=== PATIENT | male | born 1950 | race Asian ===

== ENCOUNTER 2020-10-29 09:54 | Emergency (ER) | payer MEDICAID, SELFPAY ==
[2020-10-29] VITALS (59 sets, daily range): BP systolic 140–189; BP diastolic 68–104; PULSE 82–110; RESP 18–47; TEMP 36.6–36.8; O2SAT 91–99; BMI 23.4
--- NOTE | 2020-10-29 10:05 | DI.RAD.S_ITS ---
PROCEDURE: XR CHEST 1V INDICATIONS: chest pain TECHNIQUE: One view of the chest was acquired. COMPARISON: None. FINDINGS: Surgical changes and devices: None. Lungs and pleura: Bilateral interstitial prominence. No focal infiltrate or consolidation. No pleural effusions or pneumothorax. Mediastinum: Mediastinal contours appear normal. Heart size is normal. Bones and chest wall: No suspicious bony lesions. Overlying soft tissues appear unremarkable. IMPRESSION: Bilateral interstitial prominence. No acute cardiopulmonary disease. Dictated by: Sofy Batista M.D. on 10/29/2020 at 10:44 Approved by: Sofy Batista M.D. on 10/29/2020 at 10:53
[2020-10-29 10:14] LABS: Add Manual Diff / Slide Review NO; Basophils Absolute Auto 100 /uL (0-100); Basophils Percent Auto 0.4 % (0-2); Eosinophils Absolute Auto 0 /uL (0-450); Eosinophils Percent Auto 0.2 % (2-4); Hematocrit 37.9 % (41-53); Lymphocytes Absolute Auto 400 /uL (1100-4500); Lymphocytes Percent Auto 2.4 % (25-40); Mean Corpuscular HGB Conc 34.3 % (30-36); Mean Corpuscular Hemoglobin 32.7 PG (26-34); Mean Corpuscular Volume 95.2 fL (80-100); Monocytes Absolute Auto 1100 /uL (0-900); Monocytes Percent Auto 5.9 % (3-14); Neutrophils Absolute Auto 16500 /uL (1500-7000); Neutrophils Percent Auto 91.1 % (50-75); Platelet Count 142 X10^3/uL (150-400); Red Blood Cell Count 3.98 X10^6/uL (4.5-5.9); Red Cell Distribution Width 14.2 % (11.6-14.8); White Blood Cell Count 18.1 X10^3/uL (4.5-11.0)
[2020-10-29 10:22] LABS: INR 1.2 (0.9-1.3); Prothrombin Time 14.1 SECONDS (10.1-12.7)
[2020-10-29 10:25] LABS: PTT Partial Thromboplastin Tim 27 SECONDS (26.4-36.2)
[2020-10-29 10:27] LABS: Alanine Aminotransferase 30 IU/L (<50); Albumin 3.1 g/dL (3.5-5.0); Albumin Globulin Ratio 0.9 (1.0-2.8); Alkaline Phosphatase 475 U/L (38-126); Aspartate Aminotransferase 34 IU/L (17-59); Bilirubin Total 2.2 mg/dL (0.2-1.3); Calcium 8.2 mg/dL (8.4-10.2); Carbon Dioxide 16 mmol/L (22-32); Chloride 101 mmol/L (98-107); Creatine Kinase 30 U/L (55-170); Globulin 3.3 g/dL (1.7-4.1); Glucose 130 mg/dL (80-110); HEMOLYSIS < 15 (0-50); Lipase 22 U/L (23-300); Sodium 131 mmol/L (137-145); Total Protein 6.4 g/dL (6.3-8.2)
[2020-10-29 10:37] LABS: BUN Creatinine Ratio 12.5 (6-22); Estimated Glomerular Filt Rate 5.8 mL/min (>60)
[2020-10-29 10:39] LABS: Troponin I 0.018 ng/mL (0.01-0.034)
[2020-10-29 10:41] LABS: Blood Urea Nitrogen 114 mg/dL (9-20)
--- NOTE | 2020-10-29 10:51 | ED_ITS ---
HPI - Chest Pain General Chief Complaint: Chest Pain Stated Complaint: Mild chest pain Time Seen by Provider: 10/29/20 10:10 Source: patient and family Mode of arrival: Wheelchair Limitations: language barrier History of Present Illness HPI narrative: 70-year-old male who is Japanese speaking. He states he does understand [place] and can only speak a small amount. He does have family at bedside he was provided some translation. We offer the translation line however the patient declined. It appears that approximately 10 days ago he had what he describes as the flu. Was a sore throat and subjective fevers and generally not feeling very well. He tried some home TheraFlu any thought that the symptoms w ere improving until 3 days ago when he became more weak. Had no appetite. Did not have any fevers. He is complaining of some abdominal discomfort. Also complains about issues with urination. Has had no bowel changes. He does have a lump in his right groin that has been there for several years but just has enlarged recently. This is not tender. Is here because he is very weak. Related Data Home Medications Medication Instructions Recorded Confirmed No Known Home Medications 10/29/20 10/29/20 Allergies Allergy/AdvReac Type Severity Reaction Status Date / Time ceftriaxone Allergy Severe Anaphylaxis Verified 10/29/20 12:47 Review of Systems Constitutional Constitutional: Denies fever(s) (Not currently), Denies headache(s) and Reports lethargy ENT Ears, Nose, Mouth, and Throat: Denies headache(s) Cardiovascular Cardiovascular: Denies chest pain and Denies dyspnea Respiratory Respiratory: Denies dyspnea Gastrointestinal Gastrointestinal: Denies abdominal pain Genitourinary Comments: Some difficulty with urinating Musculoskeletal Musculoskeletal: Reports myalgias Integumentary/Breasts Skin/Breast: Denies rash Neurologic Neurologic: Denies behavioral changes and Denies headache(s) Psychiatric Psychiatric: Denies behavioral changes Hematologic/Lymphatic On Anticoagulants: No Allergic/Immunologic Allergic/Immunologic: Denies urticaria Patient History Medical History Patient denies medical problems Social History Smoking Status: Current every day smoker Smoking Status: Current every day smoker alcohol intake frequency: a few times a week Substance Use Type: does not use Exam Initial Vital Signs Initial Vital Signs: Vital Signs Pulse Rate 93 H 10/29/20 09:57 Respiratory Rate 26 H 10/29/20 09:57 Blood Pressure 153/93 H 10/29/20 09:57 Pulse Oximetry 95 10/29/20 09:57 Const General: cooperative and comfortable Limitations: mental status not altered HENMT Head: normal to inspection and normocephalic Resp Effort & Inspection: normal respiratory effort and tachypneic Auscultation: clear to auscultation bilaterally Cardio Rate: regular rate Rhythm: regular rhythm GI Inspection: non-distended Palpation: soft and No tender Other: Patient does have a reducible right-sided inguinal hernia Skin Lesions: no lesions Rashes: no rashes Neuro General: patient alert and patient awake Cognition: normal cognition Speech: speech normal Extrem General: normal to inspection and capillary refill normal Psych Appearance: grossly normal and well kempt Course Orders Ordered: ED Orders 10/29/20 10:05 XR chest 1V Stat EKG-12 Lead Stat 10/29/20 10:10 Complete Blood Count AUTO DIFF Stat Comprehensive Metabolic Panel Stat Lipase Stat Partial Thromboplastin Time Stat Prothrombin Time INR Stat Troponin & CK Cardiac Panel Stat 10/29/20 10:51 CT abdomen pelvis wo con Stat 10/29/20 11:05 COVID19 Stat Urinalysis and Microscopic Stat Urine Culture Stat Discontinued Medications Albuterol (Albuterol 2.5 Mg/3 Ml Neb (Adult)) 2.5 mg INH NOW ONE Stop: 10/29/20 12:42 Last Admin: 10/29/20 13:02 Dose: 2.5 mg Documented by: BILL Diphenhydramine HCl (Diphenhydramine 50 Mg/Ml Vial) 25 mg IV NOW ONE Stop: 10/29/20 12:42 Last Admin: 10/29/20 12:44 Dose: 25 mg Documented by: TANIA Epinephrine HCl (Epinephrine 1 Mg/Ml) 0.3 mg IM NOW ONE Stop: 10/29/20 12:42 Last Admin: 10/29/20 12:44 Dose: 0.3 mg Documented by: TANIA Sodium Chloride (Normal Saline 0.9%) 1,000 mls @ 1,000 mls/hr IV BOLUS ONE Stop: 10/29/20 11:40 Last Infusion: 10/29/20 12:12 Dose: 0 mls/hr Documented by: Admin: 10/29/20 11:07 Dose: 1,000 mls/hr Documented by: TANIA Ceftriaxone Sodium/Dextrose (Rocephin) 1 gm in 50 mls @ 100 mls/hr IV NOW ONE Stop: 10/29/20 12:02 Last Infusion: 10/29/20 12:42 Dose: 0 mls/hr Documented by: Admin: 10/29/20 12:12 Dose: 100 mls/hr Documented by: JESICA Famotidine (Pepcid) 20 mg in 50 mls @ 200 mls/hr IV NOW ONE Stop: 10/29/20 12:59 Last Infusion: 10/29/20 13:06 Dose: 0 mls/hr Documented by: Admin: 10/29/20 12:50 Dose: 200 mls/hr Documented by: JESICA Lidocaine HCl (Lidocaine 2% (Urojet) 5 Ml Gel) 5 ml TOP NOW ONE Stop: 10/29/20 15:42 Last Admin: 10/29/20 15:52 Dose: 5 ml Documented by: JESICA Methylprednisolone (Methylprednisolone 125 Mg/2 Ml Vial) 125 mg IV NOW ONE Stop: 10/29/20 12:42 Last Admin: 10/29/20 12:49 Dose: 125 mg Documented by: JESICA Vital Signs Vital signs: Vital Signs - 8 hr 10/29/20 09:57 10/29/20 10:02 10/29/20 10:04 Temperature Pulse Rate 93 H 97 H 92 H Respiratory Rate 26 H 28 H Blood Pressure 153/93 H 153/93 H Pulse Oximetry 95 94 10/29/20 10:30 10/29/20 11:00 10/29/20 11:24 Temperature Pulse Rate 84 103 H 96 H Respiratory Rate 28 H 25 H 22 Blood Pressure 145/90 H 148/83 H 151/83 H Pulse Oximetry 94 96 10/29/20 11:30 10/29/20 12:00 10/29/20 12:30 Temperature Pulse Rate 87 90 94 H Respiratory Rate 27 H 34 H 36 H Blood Pressure 148/83 H 140/89 160/97 H Pulse Oximetry 95 95 91 10/29/20 12:44 10/29/20 12:45 10/29/20 12:50 Temperature Pulse Rate 106 H 109 H 106 H Respiratory Rate Blood Pressure 172/100 H 184/91 H 182/88 H Pulse Oximetry 98 96 99 10/29/20 12:55 10/29/20 13:00 10/29/20 13:05 Temperature Pulse Rate 101 H 101 H 103 H Respiratory Rate 18 24 Blood Pressure 183/88 H 186/83 H 189/88 H Pulse Oximetry 98 97 99 10/29/20 13:13 10/29/20 13:15 10/29/20 13:20 Temperature Pulse Rate 103 H 110 H 102 H Respiratory Rate 40 H 34 H 33 H Blood Pressure 168/77 H 178/86 H 176/85 H Pulse Oximetry 96 97 97 10/29/20 13:25 10/29/20 13:30 10/29/20 13:35 Temperature Pulse Rate 101 H 103 H 100 H Respiratory Rate 43 H 46 H 47 H Blood Pressure 158/68 H 163/79 H 166/89 H Pulse Oximetry 96 98 97 10/29/20 13:40 10/29/20 13:45 10/29/20 13:50 Temperature Pulse Rate 96 H 94 H 91 H Respiratory Rate 44 H 47 H 41 H Blood Pressure 153/84 H 159/82 H 154/82 H Pulse Oximetry 99 97 98 10/29/20 13:55 10/29/20 14:00 10/29/20 14:05 Temperature Pulse Rate 90 90 90 Respiratory Rate 41 H 41 H 44 H Blood Pressure 159/83 H 152/83 H 152/83 H Pulse Oximetry 98 99 98 10/29/20 14:10 10/29/20 14:15 10/29/20 14:20 Temperature Pulse Rate 91 H 92 H 90 Respiratory Rate 44 H 34 H 42 H Blood Pressure 148/81 H 148/84 H 145/86 H Pulse Oximetry 99 99 97 10/29/20 14:25 10/29/20 14:30 10/29/20 14:35 Temperature Pulse Rate 89 91 H 92 H Respiratory Rate 42 H 24 Blood Pressure 141/85 H 147/86 H 146/87 H Pulse Oximetry 96 96 96 10/29/20 14:40 10/29/20 14:45 10/29/20 14:50 Temperature Pulse Rate 94 H 89 87 Respiratory Rate 33 H 39 H Blood Pressure 150/89 H 146/90 H 147/89 H Pulse Oximetry 97 98 96 10/29/20 15:00 10/29/20 15:05 10/29/20 15:10 Temperature Pulse Rate 89 84 84 Respiratory Rate 31 H 36 H 35 H Blood Pressure 149/87 H 151/88 H 148/86 H Pulse Oximetry 99 97 97 10/29/20 15:15 10/29/20 15:20 10/29/20 15:24 Temperature 97.8 F 98.2 F Pulse Rate 85 83 Respiratory Rate 36 H 30 H Blood Pressure 146/87 H 147/87 H Pulse Oximetry 96 95 10/29/20 15:25 10/29/20 15:30 10/29/20 15:35 Temperature Pulse Rate 83 82 90 Respiratory Rate 34 H 30 H 21 Blood Pressure 147/88 H 146/89 H 152/96 H Pulse Oximetry 96 95 96 10/29/20 15:40 Temperature Pulse Rate 83 Respiratory Rate 38 H Blood Pressure 150/91 H Pulse Oximetry 95 MDM - Chest Pain Lab Data Attestation: I reviewed the patient's lab results. Result diagrams: 10/29/20 10:10 10/29/20 10:10 Labs: Lab Results 10/29/20 10/29/20 10/29/20 Range/Units 10:10 10:10 10:10 WBC 18.1 H (4.5-11.0) X10^3/uL RBC 3.98 L (4.5-5.9) X10^6/uL Hgb 13.0 L (13.5-17.5) g/dL Hct 37.9 L (41-53) % MCV 95.2 (80-100) fL MCH 32.7 (26-34) PG MCHC 34.3 (30-36) % RDW 14.2 (11.6-14.8) % Plt Count 142 L (150-400) X10^3/uL Neut % (Auto) 91.1 H (50-75) % Lymph % (Auto) 2.4 L (25-40) % [place] % (Auto) 5.9 (3-14) % Eos % (Auto) 0.2 L (2-4) % Baso % (Auto) 0.4 (0-2) % Neut # (Auto) 18604 H (6250-8676) /uL Lymph # (Auto) 400 L (3985-7164) /uL [place] # (Auto) 1100 H (0-900) /uL Eos # (Auto) 0 (0-450) /uL Baso # (Auto) 100 (0-100) /uL PT 14.1 H (10.1-12.7) SECONDS INR 1.2 (0.9-1.3) APTT 27 (26.4-36.2) SECONDS Sodium 131 L (137-145) mmol/L Potassium 4.0 (3.4-5.1) mmol/L Chloride 101 (98-107) mmol/L Carbon Dioxide 16 L (22-32) mmol/L BUN 114 H* (9-20) mg/dL Creatinine 9.11 H* (0.66-1.25) mg/dL Estimated GFR 5.8 L (>60) mL/min BUN/Creatinine Ratio 12.5 (6-22) Glucose 130 H (80-110) mg/dL Calcium 8.2 L (8.4-10.2) mg/dL Total Bilirubin 2.2 H (0.2-1.3) mg/dL AST 34 (17-59) IU/L ALT 30 (<50) IU/L Alkaline Phosphatase 475 H (38-126) U/L Total Creatine Kinase 30 L (55-170) U/L CK-MB (CK-2) TNP CK-MB (CK-2) Rel Index TNP Troponin I 0.018 (0.01-0.034) ng/mL Total Protein 6.4 (6.3-8.2) g/dL Albumin 3.1 L (3.5-5.0) g/dL Globulin 3.3 (1.7-4.1) g/dL Albumin/Globulin Ratio 0.9 L (1.0-2.8) Lipase 22 L (23-300) U/L Urine Color Urine Appearance Urine pH (4.5-8.0) Ur Specific [place] (1.000-1.035) Urine Protein (Negative) Urine Glucose (UA) (Negative) g/dL Urine Ketones (NEGATIVE) Urine Occult Blood (Negative) Urine Nitrate (Negative) Urine Bilirubin (NEGATIVE) Urine Urobilinogen (0.2) E.U./dL Ur Leukocyte Esterase (NEGATIVE) Urine RBC (0-5/HPF) Urine WBC (0-5/HPF) Amorphous Sediment Urine Bacteria (None) Ur Culture Indicated? SARS-CoV-2 (PCR) (Negative) 10/29/20 10/29/20 Range/Units 11:05 11:05 WBC (4.5-11.0) X10^3/uL RBC (4.5-5.9) X10^6/uL Hgb (13.5-17.5) g/dL Hct (41-53) % MCV (80-100) fL MCH (26-34) PG MCHC (30-36) % RDW (11.6-14.8) % Plt Count (150-400) X10^3/uL Neut % (Auto) (50-75) % Lymph % (Auto) (25-40) % [place] % (Auto) (3-14) % Eos % (Auto) (2-4) % Baso % (Auto) (0-2) % Neut # (Auto) (9770-9050) /uL Lymph # (Auto) (0979-5440) /uL [place] # (Auto) (0-900) /uL Eos # (Auto) (0-450) /uL Baso # (Auto) (0-100) /uL PT (10.1-12.7) SECONDS INR (0.9-1.3) APTT (26.4-36.2) SECONDS Sodium (137-145) mmol/L Potassium (3.4-5.1) mmol/L Chloride (98-107) mmol/L Carbon Dioxide (22-32) mmol/L BUN (9-20) mg/dL Creatinine (0.66-1.25) mg/dL Estimated GFR (>60) mL/min BUN/Creatinine Ratio (6-22) Glucose (80-110) mg/dL Calcium (8.4-10.2) mg/dL Total Bilirubin (0.2-1.3) mg/dL AST (17-59) IU/L ALT (<50) IU/L Alkaline Phosphatase (38-126) U/L Total Creatine Kinase (55-170) U/L CK-MB (CK-2) CK-MB (CK-2) Rel Index Troponin I (0.01-0.034) ng/mL Total Protein (6.3-8.2) g/dL Albumin (3.5-5.0) g/dL Globulin (1.7-4.1) g/dL Albumin/Globulin Ratio (1.0-2.8) Lipase (23-300) U/L Urine Color Yellow Urine Appearance Turbid Urine pH 5.5 (4.5-8.0) Ur Specific [place] 1.010 (1.000-1.035) Urine Protein 2+ H (Negative) Urine Glucose (UA) Negative (Negative) g/dL Urine Ketones Negative (NEGATIVE) Urine Occult Blood 3+ H (Negative) Urine Nitrate Negative (Negative) Urine Bilirubin Negative (NEGATIVE) Urine Urobilinogen 1.0 (0.2) E.U./dL Ur Leukocyte Esterase 2+ H (NEGATIVE) Urine RBC 10-30/hpf H (0-5/HPF) Urine WBC >100/hpf H (0-5/HPF) Amorphous Sediment 2+ Urine Bacteria Many (>30) H (None) Ur Culture Indicated? Specimen cultured SARS-CoV-2 (PCR) Negative (Negative) Imaging Data Chest x-ray: Radiologist's Impression: [address] [id number] ReportSigned Patient: Mesfin MiguelMR#: [id number]: 2Acct:[id number]/Sex: 70 / MDate of Service: 10/29/20Loc: EDAccession Number: [id number] Procedure: XR chest 1V Ordering Provider: Edison Meneses D.O. PROCEDURE: XR CHEST 1V INDICATIONS: chest pain TECHNIQUE: One view of the chest was acquired. COMPARISON: None. FINDINGS: Surgical changes and devices: None. Lungs and pleura: Bilateral interstitial prominence. No focal infiltrate or consolidation. No pleural effusions or pneumothorax. Mediastinum: Mediastinal contours appear normal. Heart size is normal. Bones and chest wall: No suspicious bony lesions. Overlying soft tissues appear unremarkable. IMPRESSION: Bilateral interstitial prominence. No acute cardiopulmonary disease. Dictated by: Sofy Batista M.D. on 10/29/2020 at 10:44 Approved by: Sofy Batista M.D. on 10/29/2020 at 10:53 CT scan - abdomen/pelvis: Radiologist's Impression: [address] [id number] Scan ReportSigned Patient: Mesfin Miguel#: [id number]: 2Acct:[id number]/Sex: 70 / MDate of Service: 10/29/20Loc: EDAccession Number: [id number] Procedure: CT abdomen pelvis wo con Ordering Provider: Edison Meneses D.O. PROCEDURE: CT ABDOMEN PELVIS WO CON INDICATIONS: Acute kidney failure with leukocytosis TECHNIQUE: Noncontrast 5 mm thick sections acquired from the diaphragms to the symphysis. 5 mm thick coronal and sagittal reformats were then performed. For radiation dose reduction, the following was used: automated exposure control, adjustment of mA and/or kV according to patient size. COMPARISON: None. FINDINGS: Image quality: Excellent. Lung bases: There are small pleural effusions bilaterally with bibasilar atelectasis. Heart size is normal. Small pericardial effusion. Urinary system: Both kidneys are normal in size. Kidneys appear edematous. Calcific foci in renal hoang bilaterally are most likely vascular calcifications. No definitive kidney stones. No hydronephrosis. Mild bilateral perinephric stranding. Both ureters appear non-dilated throughout their expected courses. Air within bladder is likely iatrogenic. Bladder wall is thickened. There are innumerable bladder stones. The prostate is enlarged. Other solid organs: Liver is normal in size. Gallbladder is surgically absent . Pancreas is normal in contours. Spleen is normal in size. No adrenal nodules. Peritoneum and bowel: Normal appendix. Unenhanced bowel loops demonstrate normal wall thickness and caliber. No free air. There is a small amount of free fluid. Nodes and vessels: No retroperitoneal or mesenteric adenopathy by size criteria. Aorta and inferior vena cava are normal in caliber. Abdominal wall: No ventral hernias. Pelvis: No free pelvic fluid. No adenopathy. There is a large right inguinal hernia containing small bowel loops Bones: No suspicious bony lesions. No vertebral body compression fractures. Severe degenerative changes in lumbar spine. IMPRESSION: 1. There are innumerable stones within the bladder. Bladder wall is thickened. Air within the bladder lumen is likely iatrogenic or secondary to gas-forming bacteria infections. Recommend clinical correlation. 2. No kidney stones or hydronephrosis. Kidneys appear edematous. Cannot rule out kidney infections (pyelonephritis). 3. Large right inguinal hernia containing bowel loops. No CT findings to suggest small bowel obstruction. 4. There are large amount of stool in colon. 5. Small amount of free fluid in pelvis. 6. Small pleural effusions bilaterally with bibasilar atelectasis. 7. Small pericardial effusion. The result was discussed with Dr. Meneses in ER. Dictated by: Sofy Batista M.D. on 10/29/2020 at 12:12 Approved by: Sofy Batista M.D. on 10/29/2020 at 13:32 ECG Data Attestation: I personally reviewed and interpreted this ECG as follows: Prior ECG tracings: not available for review Interpretation: Sinus rhythm Ventricular rate 85 Normal axis Normal QRS Normal QTC No ST T wave changes MDM Narrative Medical decision making narrative: Patient has a leukocytosis with a left shift. Urinalysis concerning for a urinary tract infection. He was given 1 g of Rocephin here in the emergency department and just after administration of this he had symptoms that were consistent with an anaphylactic reaction. He was subsequently given Solu-Medrol and Benadryl and epi in famotidine. Is also given albuterol. After administration these medications patient reports symptom improvement/resolution of his symptoms. Ceftriaxone was added to his medication list. CT scan shows stones in his bladder. Unfortunately given his renal function today he was unable to obtain a CT scan with contrast. His acute kidney injury/acute renal failure is new. I did discuss the case with Dr. Bains with Nephrology in [facility] who states she would be happy to evaluate the patient upon arrival. I discussed the case with the hospitalist at [facility] who accepts the tray shunt and transport. I then passed information on to Dr. Kennedy with urology who stated that she had no recommendations for the patient. Patel catheter was placed to drain his bladder. Will transport for further evaluation and treatment. Discussed the transport with the patient. He did expressed understanding and agreement. Discharge Plan Departure Patient Disposition: [facility] Clinical Impression: Acute renal failure, Urinary tract infection, Anaphylactic reaction Prescriptions: No Action No Known Home Medications RF: 0
[2020-10-29] MEDS: SODIUM CHLORIDE 0.9% 1,000 ML 1000 ML IV (11:07)
[2020-10-29 11:18] LABS: Appearance Urine UA TURBID; Bilirubin Urine UA NEGATIVE (NEGATIVE); Color Urine UA YELLOW; Glucose Urine UA NEGATIVE (Negative); Ketones Urine UA NEGATIVE (NEGATIVE); Leukocyte Esterase Urine UA 2+ (NEGATIVE); Nitrite Urine UA NEGATIVE (Negative); Occult Blood Urine UA 3+ (Negative); Protein Urine UA 2+ (Negative); pH Urine UA 5.5 (4.5-8.0)
[2020-10-29 11:29] LABS: Amorphous Sediment Urine 2+; Bacteria Urine Many (>30); RBC Urine 10-30/HPF (0-5/HPF); WBC Urine >100/HPF (0-5/HPF)
[2020-10-29 11:30] LABS: Culture Indicated Urine Specimen Cultured
[2020-10-29 11:32] LABS: COVID19 -Nasal RAPID Negative (Negative)
[2020-10-29] MEDS: CEFTRIAXONE 1 GM/50 ML FROZ.PIGGY IV (12:12)
[2020-10-29] MEDS: diphenhydrAMINE 50 MG/ML VIAL 25 MG IV (12:44)
[2020-10-29] MEDS: EPINEPHrine 1 MG/ML 0.3 MG IM (12:44)
--- NOTE | 2020-10-29 12:47 | PC.NURSE ---
anaphalactic reaction to ceftriaxone. Added to allergy list.
[2020-10-29] MEDS: methylPREDNISolone 125 MG/2 ML VIAL IV (12:49)
[2020-10-29] MEDS: FAMOTIDINE 20 MG/50 ML PIGGYBACK 200 MG IV (12:50)
--- NOTE | 2020-10-29 12:55 | PC.NURSE ---
upon finishing ceftriaxone IV the patient began wheezing and his o2 saturation dropped to 88% on RA. His mouth has some frothy white sputum in it. He was placed on 2l nasal cannula, sat up in bed, suctions was provided, charge, MD, and resp. therapy notified and assessed patient with primary RN. Rescue anaphylaxis medication was administered and a breathing treatment was done.
--- NOTE | 2020-10-29 12:58 | PC.NURSE ---
patient reports feeling much better and is resting and is off the breathing treatment.
[2020-10-29] MEDS: ALBUTEROL 2.5 MG/3 ML NEB (ADULT) INH (13:02)
[2020-10-29] MEDS: LIDOCAINE 2% (UROJET) 5 ML GEL TOP (15:52)
== END 2020-10-29 17:21 | disposition short-term general hospital (02) ==
PROVIDERS: Emergency Provider Emergency Medicine
DX: N17.9 Acute kidney failure, unspecified (principal); N39.0 Urinary tract infection, site not specified; T88.6XXA Anaphylactic reaction due to adverse effect of correct drug or medicament properly administered, initial encounter; J02.9 Acute pharyngitis, unspecified; R50.9 Fever, unspecified; Z20.822 Contact with and (suspected) exposure to COVID-19; D72.829 Elevated white blood cell count, unspecified
CPT/HCPCS: 36415; 51701; 51798; 71045; 74176; 80053; 81001; 82550; 83690; 84484; 85025; 85610; 85730; 87077; 87086; 87186; 87635; 93005; 94640; 96361; 96365; 96367; 96372; 96375; 99284; 99285; C9803; J0171; J1200; J2930; J7613